=== PATIENT | male | born 1950 | race Caucasian/White ===

== ENCOUNTER 2018-11-02 22:13 | Emergency (ER) | payer SELFPAY ==
[~2018-11-02] VITALS: Ht 182.9 cm; Wt 87.0 kg
[2018-11-02 22:20] VITALS: BP 154/80
--- NOTE | 2018-11-02 22:27 | NUR ---
Pt here for suicidal ideaiton per [employer]. Pt reports that he went on a 4 day speed pedersen to kill himself. howevere he does not want to be here at this time. He just shouted out some thoughts. Pt reports he is hopless and just doesnt want to deal with things. pt has no resp distress and vss at this time. Pt in safe room with 1 bag of belongings in ed locker at this time. Pt provided ua at this time.
[2018-11-02 22:52] LABS: AMPHETAMINE SCREEN, URINE Positive (Negative); BARBITURATE SCREEN, URINE Negative (Negative); BENZODIAZEPINE SCREEN, URINE Negative (Negative); CANNABINOID SCREEN, URINE Negative (Negative); COCAINE SCREEN, URINE Negative (Negative); METHADONE SCREEN, URINE Negative (Negative); OPIATE SCREEN, URINE Negative (Negative)
--- NOTE | 2018-11-02 22:53 | NUR ---
PT AT THIS TIME DENIES SA, SI, HI. PT REPORTS HE WAS JUST SAYING THESE THINGS BECUASE HE WAS FRUSTRATED AND DIDNT KNOW WHAT TO SAY.
--- NOTE | 2018-11-02 23:29 | NUR ---
Patient/Caregiver given discharge instructions and they have confirmed that they understand the instructions. Patient ambulatory with steady gait. PT CONTINUES TO DENY HI/SI/ AT THIS TIME.
--- NOTE | 2018-11-02 23:44 | NUR ---
PT GIVEN SNACK PRIOR TO DC.
== END 2018-11-02 23:45 | disposition home or self-care (01) ==
LOC: ED 22:41
DX: R05 Cough (principal); F15.129 Other stimulant abuse with intoxication, unspecified; Z72.9 Problem related to lifestyle, unspecified
CPT/HCPCS: 71046; 80307; 99284